=== PATIENT | female | born 2000 | race Caucasian/White ===

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

== ENCOUNTER → 2022-08-20 15:12 | Outpatient (CLI) | payer BC, SELFPAY | PROVIDERS: PCP Nurse Practitioner Family; Visit Provider Nurse Practitioner Family | DX: J02.9 Acute pharyngitis, unspecified (principal) ==

== ENCOUNTER → 2022-12-16 12:39 | Outpatient (CLI) | payer BC, SELFPAY ==
--- NOTE | 2022-12-16 12:39 | US_ITS ---
FINAL REPORT CLINICAL HISTORY: pelvic pain COMPARISON: None FINDINGS: Transvaginal sonographic images of the pelvis were obtained. The uterus measures 6.9 x 3.4 x 3.4 cm. The endometrium measures 3 mm, which is within normal limits. No uterine mass is identified. The right ovary measures 3.1 cm in length and left ovary measures 3.3 cm in length. There is a 1.8 cm cyst in the left ovary. Normal blood flow seen to the ovaries. Small follicles are present. There is no evidence of free fluid. IMPRESSION: 1.8 cm cyst left ovary. Otherwise unremarkable transvaginal exam. Reviewed, Interpreted and Dictated by Ori Putnam III, MD Transcribed by Cecilia Menchaca Authenticated and [facility]
== END ==
PROVIDERS: PCP Nurse Practitioner Family; Visit Provider Obstetrics & Gynecology
DX: R10.2 Pelvic and perineal pain (principal)
CPT/HCPCS: 76830